=== PATIENT | female | born 1950 | race Caucasian/White ===

== ENCOUNTER 2017-06-06 08:42 | Outpatient (CLI) | payer MEDICARE | END 2017-06-06 08:43 | disposition home or self-care (01) | LOC: BICMAMMO 08:42 | PROVIDERS: ATTEND Family Medicine | DX: Z12.31 Encounter for screening mammogram for malignant neoplasm of breast (principal) | CPT/HCPCS: 77063; 77067 ==

== ENCOUNTER 2017-07-24 07:49 | Outpatient (CLI) | payer MEDICARE ==
--- NOTE | 2017-07-24 10:32 | MRI ---
MRI BRAIN WITH AND WITHOUT CONTRAST: Technique: Multiplanar, multisequential imaging of the brain obtained. Post contrast administration a re obtained with administration of 10 cc of MultiHance IV. Indications: Diplopia. Comparison: None. FINDINGS: There is volume loss due to encephalomalacia involving the right anterior temporal lobe most consiste nt with old infarct. There is surrounding gliosis at this site. Ventricles have normal size and posit ion. There is no evidence of restricted diffusion. No abnormal enhancement is identified. Orbits appe ar unremarkable. Extraocular muscles appear normal and symmetric. The intracranial internal carotid arteries, proximal cerebral arteries, and basilar arteries show mariano w voids. Dural venous sinuses appear patent. Paranasal sinuses and mastoids are clear. Review of the white matter on FLAIR sequence shows scattered white matter hyperintensities in both ce rebral hemispheres consistent with mild chronic ischemic change. IMPRESSION: 1. 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 Recommen d clinical correlation regarding prior history of stroke. 2. Mild chronic ischemic white matter change. 3. No acute process identified. POS: CHARLA
[2017-07-24] MEDS ORDERED: Gadobenate Dimeglumine 529 MG/1 ML (20ML VIAL) ONE (14:51)
== END 2017-07-24 07:50 | disposition home or self-care (01) ==
LOC: MRI 07:49
PROVIDERS: ATTEND Psychiatry & Neurology Neurology
DX: Z01.812 Encounter for preprocedural laboratory examination (principal); H53.2 Diplopia; G93.89 Other specified disorders of brain
CPT/HCPCS: 70553; 82565; A9579

== ENCOUNTER 2018-01-16 09:32 | Outpatient (CLI) | payer MEDICARE, BC | END 2018-01-16 09:33 | disposition home or self-care (01) | LOC: BICMAMMO 09:32 | PROVIDERS: ATTEND Family Medicine | DX: Z13.820 Encounter for screening for osteoporosis (principal); M81.8 Other osteoporosis without current pathological fracture; M85.89 Other specified disorders of bone density and structure, multiple sites | CPT/HCPCS: 77080 ==